=== PATIENT | female | born 2000 | race Caucasian/White ===

== ENCOUNTER 2019-03-29 15:29 | Inpatient (IN) ==
[2019-03-29] MEDS ORDERED: ONDANSETRON 4 MG/2 ML VIAL IV PRN (18:01)
[2019-03-30] MEDS: ACETAMINOPHEN 500 MG TABLET PO PRN ×2 (00:45→11:49)
[2019-03-30] MEDS ORDERED: ONDANSETRON 4 MG/2 ML VIAL IV PRN ×2 (07:25→19:16)
[2019-03-30] MEDS ORDERED: LACTATED RINGERS 250 ML IV ONE (07:25)
[2019-03-30] MEDS ORDERED: LACTATED RINGERS 500 ML IV PRN (07:25)
[2019-03-30 07:43] LABS: Basophils % 0.3 % (0.0-0.8); Eosinophils # 0.1 10*3/uL (0.0-0.87); Eosinophils % 0.6 % (0.00-10.9); Hematocrit 37.9 VOL% (35.7-47.0); Immature Granulocytes % 1.5 %; Immature Granulocytes Absolute 0.22 #; Lymphocytes # 2.9 10*3/uL (1.4-4.0); Lymphocytes % 20.2 % (21.3-54.2); Mean Corpuscular HGB Conc 31.7 GM/DL (32-36); Mean Corpuscular Volume 86.5 FL (87-102); Neutrophils % 72.4 % (38.7-73.9); Platelet Count 155 T/CUMM (130-400); Red Blood Count 4.38 MC/CUMM (3.8-5.5); White Blood Count 14.3 T/CUMM (4-12)
[2019-03-30] MEDS ORDERED: OXYTOCIN/LR 20 UNIT/1,000 ML BAG IV ONE ×2 (08:43→19:16)
[2019-03-30] MEDS ORDERED: CITRIC ACID/SODIUM CITRATE 30 ML UDCUP PO ONE (08:49)
[2019-03-30] MEDS ORDERED: hydrOXYzine HCL 25 MG/1 ML VIAL IM PRN (08:49)
[2019-03-30] MEDS ORDERED: PROMETHAZINE 25 MG/1 ML VIAL IM ONE (08:49)
[2019-03-30] MEDS ORDERED: FAMOTIDINE 20 MG/2 ML VIAL IV ONE (08:49)
[2019-03-30] MEDS ORDERED: ONDANSETRON 4 MG/2 ML VIAL IV ONE (08:49)
[2019-03-30] MEDS ORDERED: ePHEDrine 50 MG/ML AMP IV PRN (08:49)
[2019-03-30] MEDS ORDERED: diphenhydrAMINE 50 MG/1 ML VIAL IV PRN ×2 (08:49)
[2019-03-30] MEDS ORDERED: NALOXONE 0.4 MG/ML VIAL IV PRN (08:49)
[2019-03-30] MEDS ORDERED: fentaNYL 2 MCG/ROPIV 0.2% EPID 100 ML EPIDURAL SCH (09:00)
[2019-03-30] MEDS: LACTATED RINGERS 1,000 ML IV SCH ×2 (09:17→11:44)
[2019-03-30] MEDS ORDERED: OXYTOCIN/D5LR 20 UNIT/1,000 ML PREMIX IV SCH (09:30)
[2019-03-30] MEDS ORDERED: OXYTOCIN/LR 20 UNIT/1,000 ML BAG IV SCH (09:30)
[2019-03-30 12:49] LABS: Apearance,Urine CLEAR (Clear); Bilirubin,Urine Negative (Negative); Blood, Urine Negative (Negative); Glucose,Urine (UA) Negative (Negative); Ketones,Urine 20 mg/dL (Negative); Mucus,Urine Few /LPF (Occasional); Nitrite,Urine Negative (Negative); Protein,Urine 30 MG/DL; RBC,Urine 1 /HPF (0-4); Squamous Epithelial Cell,Urine Occasional /HPF (0-10); Urine Color Yellow (Yellow); Urine Specific Gravity 1.029 (1.001-1.035); Urine Urobilinogen < 2.0 EU/DL (0.2-1.0); WBC,Urine 1 /HPF (0-6)
[2019-03-30] MEDS ORDERED: ceFAZolin 3,000 MG in SYRINGE 1 EACH IV ONE (16:45)
[2019-03-30] MEDS ORDERED: OXYTOCIN/LR 30 UNIT/1,000 ML BAG IV ONE (16:48)
[2019-03-30] MEDS ORDERED: OXYTOCIN 10 UNIT/ML VIAL IM ONE (16:53)
[2019-03-30] MEDS ORDERED: LIDOCAINE MPF 2% /EPI 20 ML VIAL ONE (18:00)
[2019-03-30 19:03] LABS: Cord Arterial Blood HCO3 21.5 MMOL/L
[2019-03-30 19:05] LABS: Cord Venous Blood HCO3 21.9 MMOL/L; Cord Venous Blood PCO2 35.4 MMHG; Cord Venous Blood PO2 31.5 MMHG
[2019-03-30] MEDS ORDERED: RHO(D) IMMUNE GLOBULIN 300 MCG SYRINGE IM ONE (19:16)
[2019-03-30] MEDS ORDERED: ACETAMINOPHEN 325 MG TABLET PO PRN (19:16)
[2019-03-30] MEDS ORDERED: PROPOFOL 200 MG/20 ML VIAL IV ONE (19:28)
[2019-03-30] MEDS ORDERED: MORPHINE 10 MG/10 ML VIAL ONE (19:29)
[2019-03-30] MEDS ORDERED: MIDAZOLAM 2 MG/2 ML VIAL ONE (19:29)
[2019-03-30] MEDS ORDERED: SODIUM CHLORIDE 0.9% 100 ML IV ONE (19:30)
[2019-03-30] MEDS ORDERED: PHENYLEPHRINE 1 MG/10 ML SYRINGE IV ONE (19:30)
[2019-03-30] MEDS ORDERED: KETAMINE 500 MG/10 ML VIAL ONE (19:30)
[2019-03-30] MEDS ORDERED: ONDANSETRON 4 MG/2 ML VIAL ONE (19:30)
[2019-03-30] MEDS ORDERED: LACTATED RINGERS 1,000 ML IV SCH (19:30)
[2019-03-31] MEDS: ceFAZolin 1,000 MG in SYRINGE 1 EACH IV SCH ×2 (02:16→10:33)
[2019-03-31] MEDS: DOCUSATE SODIUM 100 MG CAPSULE PO SCH ×4 (02:35→20:44)
[2019-03-31 04:38] LABS: Basophils # 0.1 10*3/uL (0.0-0.2); Basophils % 0.3 % (0.0-0.8); Eosinophils # 0.1 10*3/uL (0.0-0.87); Eosinophils % 0.3 % (0.00-10.9); Hematocrit 35.5 VOL% (35.7-47.0); Hemoglobin 11.3 GM/DL (12.0-16.0); Immature Granulocytes Absolute 0.18 #; Lymphocytes # 2.1 10*3/uL (1.4-4.0); Lymphocytes % 11.5 % (21.3-54.2); Mean Corpuscular HGB Conc 31.8 GM/DL (32-36); Mean Corpuscular Volume 85.5 FL (87-102); Mean Platelet Volume 11.8 FL (9.6-12.0); Monocytes % 4.5 % (1.7-12.7); Neutrophils % 82.4 % (38.7-73.9); Platelet Count 137 T/CUMM (130-400); Red Blood Count 4.15 MC/CUMM (3.8-5.5); White Blood Count 18.6 T/CUMM (4-12)
[2019-03-31] MEDS: MAGNESIUM HYDROXIDE SUSP 30 ML UDCUP PO PRN (07:36)
[2019-03-31] MEDS: SIMETHICONE CHEW 80 MG TABLET PO PRN (07:36)
[2019-03-31] MEDS: MULTIVITAMIN (PRENATAL) TABLET PO SCH ×2 (07:37→12:03)
[2019-03-31 08:00] LABS: Basophils % 0.2 % (0.0-0.8); Eosinophils % 0.4 % (0.00-10.9); Hematocrit 34.5 VOL% (35.7-47.0); Hemoglobin 11.1 GM/DL (12.0-16.0); Immature Granulocytes % 1.1 %; Lymphocytes % 11.3 % (21.3-54.2); Mean Corpuscular HGB Conc 32.2 GM/DL (32-36); Mean Corpuscular Volume 85.6 FL (87-102); Mean Platelet Volume 11.7 FL (9.6-12.0); Monocytes % 4.8 % (1.7-12.7); Neutrophils % 82.2 % (38.7-73.9); Platelet Count 142 T/CUMM (130-400); Red Blood Count 4.03 MC/CUMM (3.8-5.5); White Blood Count 17.8 T/CUMM (4-12)
[2019-03-31 08:01] LABS: Eosinophils # 0.1 10*3/uL (0.0-0.87)
[2019-03-31] MEDS ORDERED: BISACODYL 10 MG SUPP RECTAL PRN (08:06)
[2019-03-31] MEDS: METOCLOPRAMIDE 10 MG TABLET PO SCH ×2 (10:33→17:00)
[2019-03-31] MEDS: IBUPROFEN 800 MG TABLET PO PRN ×2 (12:06→20:43)
[2019-03-31] MEDS ORDERED: MEPERIDINE 50 MG/1 ML VIAL IV PRN (14:24)
[2019-03-31] MEDS ORDERED: MEPERIDINE 25 MG/1 ML VIAL ONE (23:32)
[2019-04-01] MEDS: IBUPROFEN 800 MG TABLET PO PRN ×2 (02:27→23:43)
[2019-04-01] MEDS: METOCLOPRAMIDE 10 MG TABLET PO SCH ×4 (05:52→23:41)
[2019-04-01] MEDS: MULTIVITAMIN (PRENATAL) TABLET PO SCH (08:45)
[2019-04-01] MEDS: DOCUSATE SODIUM 100 MG CAPSULE PO SCH ×2 (08:45→22:06)
[2019-04-01] MEDS ORDERED: oxyCODONE/ACETAMINOPHEN 5-325 MG TABLET ONE (13:17)
[2019-04-01] MEDS: oxyCODONE/ACETAMINOPHEN 5-325 MG TABLET PO PRN ×2 (13:46→20:16)
[2019-04-01] MEDS: SERTRALINE 50 MG TABLET PO SCH (14:18)
[2019-04-01] MEDS: CLORAZEPATE 3.75 MG TABLET PO PRN ×2 (14:18→22:05)
[2019-04-01] MEDS: SIMETHICONE CHEW 80 MG TABLET PO PRN (22:05)
[2019-04-01] MEDS: MAGNESIUM HYDROXIDE SUSP 30 ML UDCUP PO PRN (22:06)
[2019-04-02] MEDS: METOCLOPRAMIDE 10 MG TABLET PO SCH (06:51)
[2019-04-02] MEDS: MULTIVITAMIN (PRENATAL) TABLET PO SCH (08:01)
[2019-04-02] MEDS: DOCUSATE SODIUM 100 MG CAPSULE PO SCH (08:01)
[2019-04-02] MEDS: SERTRALINE 50 MG TABLET PO SCH (08:01)
[2019-04-02] MEDS: IBUPROFEN 800 MG TABLET PO PRN (08:01)
[2019-04-02] MEDS: SIMETHICONE CHEW 80 MG TABLET PO PRN (08:02)
[2019-04-02] MEDS: oxyCODONE/ACETAMINOPHEN 5-325 MG TABLET PO PRN (08:03)
[2019-04-02 11:13] VITALS: BP 161/84
[2019-04-02] MEDS ORDERED: DIPH/TET/ACEL PERT BOOSTER VACCINE 0.5 ML VIAL IM ONE (13:04)
== END 2019-04-02 14:40 | disposition home or self-care (01) | DRG 540 ==
LOC: N.LDOUT 15:29 → N.LD 15:36 → N.OB 03-30 21:30
PROVIDERS: ADMIT Obstetrics & Gynecology; ATTEND Obstetrics & Gynecology
PROC: LDCSECT (ICD-10-PCS; 2019-03-30 17:00)

== ENCOUNTER 2021-12-10 09:39 | Inpatient (IN) ==
[2021-12-10] MEDS ORDERED: CITRIC ACID/SODIUM CITRATE 30 ML UDCUP PO ONE (10:03)
[2021-12-10] MEDS ORDERED: CLINDAMYCIN INJ 900 MG/50 ML PREMIX IV ONE (10:09)
[2021-12-10] MEDS: LACTATED RINGERS 1,000 ML IV SCH ×2 (10:10→23:46)
[2021-12-10] MEDS ORDERED: OXYTOCIN/LR 30 UNIT/1,000 ML BAG IV ONE (11:03)
[2021-12-10] MEDS ORDERED: OXYTOCIN 10 UNIT/ML VIAL IM ONE (11:03)
[2021-12-10] MEDS ORDERED: OXYTOCIN/LR 20 UNIT/1,000 ML BAG IV ONE ×3 (11:03→15:19)
[2021-12-10 11:29] LABS: Alanine Aminotransferase 15 U/L (13-56); Albumin 2.5 G/DL (3.4-5.0); Alkaline Phosphatase 193 U/L (45-117); Aspartate Amino Transferase 10 U/L (0-37); Bilirubin,Total < 0.39 MG/DL (0.20-1.00); Blood Urea Nitrogen 9 MG/DL (7-18); Calcium 9.4 MG/DL (8.5-10.1); Carbon Dioxide 19 MMOL/L (21-32); Estimated Glom Filtration Rate 147 ML/MIN; Glucose 101 MG/DL (74-106); Sodium 136 MMOL/L (136-145); Total Protein 6.5 G/DL (6.4-8.2)
[2021-12-10 11:36] LABS: Basophils % 0.2 % (0.0-0.8); Eosinophils # 0.1 10*3/uL (0.0-0.87); Eosinophils % 0.4 % (0.00-10.9); Hematocrit 38.8 VOL% (35.7-47.0); Hemoglobin 12.6 GM/DL (12.0-16.0); Immature Granulocytes % 1.9 %; Immature Granulocytes Absolute 0.24 #; Lymphocytes # 2.4 10*3/uL (1.4-4.0); Lymphocytes % 19.7 % (21.3-54.2); Mean Corpuscular HGB Conc 32.5 GM/DL (32-36); Mean Corpuscular Volume 85.3 FL (87-102); Mean Platelet Volume 13.5 FL (9.6-12.0); Monocytes % 3.9 % (1.7-12.7); Neutrophils % 73.9 % (38.7-73.9); Platelet Count 126 T/CUMM (130-400); Red Blood Count 4.55 MC/CUMM (3.8-5.5); Red Cell Distribution Width 14.6 % (9.3-17.3); White Blood Count 12.3 T/CUMM (4-12)
[2021-12-10] MEDS ORDERED: METHYLERGONOVINE 0.2 MG/1 ML AMP ONE (13:34)
[2021-12-10] MEDS ORDERED: CARBOPROST TROMETHAMINE 250 MCG/ML AMP IM ONE (13:34)
[2021-12-10] MEDS ORDERED: TRANEXAMIC ACID 1,000 MG/10 ML VIAL ONE ×2 (13:34→20:27)
[2021-12-10] MEDS ORDERED: miSOPROStoL 200 MCG TABLET ONE (13:34)
[2021-12-10] MEDS ORDERED: SODIUM CHLORIDE 0.9% 0 ML IV ONE (13:34)
[2021-12-10] MEDS ORDERED: FAMOTIDINE 20 MG/2 ML VIAL IV ONE ×2 (13:36→13:45)
[2021-12-10] MEDS ORDERED: BUPIVACAINE SPINAL 0.75% 2 ML AMP SPINAL ONE (13:49)
[2021-12-10] MEDS ORDERED: ONDANSETRON 4 MG/2 ML VIAL ONE (13:49)
[2021-12-10] MEDS ORDERED: MIDAZOLAM 2 MG/2 ML VIAL ONE ×2 (14:10→21:02)
[2021-12-10] MEDS ORDERED: LACTATED RINGERS 1,000 ML IV ONE (14:14)
[2021-12-10] MEDS ORDERED: PHENYLEPHRINE 1 MG/10 ML SYRINGE IV ONE (14:14)
[2021-12-10] MEDS ORDERED: METOCLOPRAMIDE 10 MG/2 ML VIAL ONE ×2 (14:36→20:44)
[2021-12-10 14:44] LABS: Cord Arterial Blood HCO3 21.6 MMOL/L
[2021-12-10 14:47] LABS: Cord Venous Blood HCO3 21.6 MMOL/L; Cord Venous Blood PCO2 44.3 MMHG; Cord Venous Blood PO2 25.1
[2021-12-10 15:01] LABS: Mucus,Urine Occasional /LPF (Occasional); RBC,Urine 4 /HPF (0-4); Squamous Epithelial Cell,Urine Occasional /HPF (0-10); Urine Appearance Clear (Clear); Urine Color Light Yellow (Yellow); Urine pH 5.5 (4.5-8.0)
[2021-12-10 15:02] LABS: Bilirubin,Urine Negative (Negative); Blood, Urine Moderate mg/dL (Negative); Glucose,Urine (UA) Negative (Negative); Ketones,Urine 40 mg/dL (Negative); Nitrite,Urine Negative (Negative); Protein,Urine Negative; Urine Specific Gravity >= 1.030 (1.001-1.035); Urine Urobilinogen < 2.0 EU/DL (<2.0)
[2021-12-10] MEDS ORDERED: RHO(D) IMMUNE GLOBULIN 300 MCG SYRINGE IM ONE (15:19)
[2021-12-10] MEDS ORDERED: ONDANSETRON 4 MG/2 ML VIAL IV PRN (15:19)
[2021-12-10] MEDS ORDERED: ACETAMINOPHEN 325 MG TABLET PO PRN (15:19)
[2021-12-10] MEDS: ACETAMINOPHEN 500 MG TABLET PO SCH (18:26)
[2021-12-10] MEDS ORDERED: SODIUM CHLORIDE 0.9% 1,000 ML IV PRN ×2 (20:16→22:29)
[2021-12-10] MEDS ORDERED: SODIUM CHLORIDE 0.9% 100 ML IV ONE (20:28)
[2021-12-10] MEDS ORDERED: TRANEXAMIC ACID 1,000 MG in SODIUM CHLORIDE 0.9% 100 ML IV ONE (20:30)
[2021-12-10] MEDS ORDERED: CALCIUM CHLORIDE 1,000 MG/10 ML SYRINGE IV ONE (20:31)
[2021-12-10 20:42] LABS: Hematocrit 35.2 VOL% (35.7-47.0); Hemoglobin 11.2 GM/DL (12.0-16.0)
[2021-12-10] MEDS ORDERED: propofoL 200 MG/20 ML VIAL IV ONE (20:42)
[2021-12-10] MEDS ORDERED: LIDOCAINE 2% 5 ML VIAL ONE (20:42)
[2021-12-10] MEDS ORDERED: KETAMINE 500 MG/10 ML VIAL ONE (20:42)
[2021-12-10] MEDS ORDERED: CALCIUM CHLORIDE 1,000 MG/10 ML VIAL IV ONE (21:00)
[2021-12-10] MEDS ORDERED: metFORMIN 500 MG TABLET PO SCH (21:00)
[2021-12-10] MEDS ORDERED: OXYTOCIN 10 UNIT/ML VIAL ONE (21:03)
[2021-12-10] MEDS ORDERED: fentaNYL 100 MCG/2 ML VIAL ONE (21:03)
[2021-12-10] MEDS ORDERED: PHENYLEPHRINE 10 MG/1 ML VIAL IV ONE (21:08)
[2021-12-10] MEDS ORDERED: ceFAZolin 1,000 MG VIAL ONE (21:33)
[2021-12-10] MEDS ORDERED: SODIUM CHLORIDE 0.9% 1,000 ML IV ONE (21:35)
[2021-12-10] MEDS ORDERED: SEVOFLURANE 1 UNIT/15 MINUTE INH ONE (22:34)
[2021-12-10] MEDS ORDERED: ROCURONIUM 50 MG/5 ML VIAL IV ONE (22:35)
[2021-12-10] MEDS ORDERED: NEOSTIGMINE 10 MG/10 ML VIAL ONE (22:35)
[2021-12-10] MEDS ORDERED: GLYCOPYRROLATE 0.4 MG/2 ML VIAL ONE (22:35)
[2021-12-10] MEDS ORDERED: HYDROmorphone 2 MG/1 ML VIAL IV PRN (23:34)
[2021-12-11] MEDS: KETOROLAC 30 MG/1 ML VIAL IV SCH ×3 (00:05→11:20)
[2021-12-11] MEDS: CLINDAMYCIN INJ 900 MG/50 ML PREMIX IV SCH ×2 (00:05→04:51)
[2021-12-11] MEDS: DOCUSATE SODIUM 100 MG CAPSULE PO SCH ×3 (00:06→21:40)
[2021-12-11] MEDS: SERTRALINE 100 MG TABLET PO SCH ×2 (00:06→20:10)
[2021-12-11] MEDS: ACETAMINOPHEN 500 MG TABLET PO SCH ×2 (00:06→06:16)
[2021-12-11] MEDS: LACTATED RINGERS 1,000 ML IV SCH ×3 (01:16→08:20)
[2021-12-11 04:54] LABS: Basophils % 0.1 % (0.0-0.8); Eosinophils % 0.1 % (0.00-10.9); Hematocrit 36.9 VOL% (35.7-47.0); Hemoglobin 11.8 GM/DL (12.0-16.0); Immature Granulocytes % 1.3 %; Immature Granulocytes Absolute 0.19 #; Lymphocytes # 2.5 10*3/uL (1.4-4.0); Lymphocytes % 17.2 % (21.3-54.2); Mean Corpuscular Volume 88.1 FL (87-102); Mean Platelet Volume 13.7 FL (9.6-12.0); Monocytes % 4.2 % (1.7-12.7); Neutrophils % 77.1 % (38.7-73.9); Platelet Count 109 T/CUMM (130-400); Red Blood Count 4.19 MC/CUMM (3.8-5.5); White Blood Count 14.6 T/CUMM (4-12)
[2021-12-11] MEDS: SIMETHICONE CHEW 80 MG TABLET PO PRN ×2 (06:23→20:10)
[2021-12-11] MEDS: FUROSEMIDE 40 MG/4 ML VIAL IV SCH ×3 (08:20→20:10)
[2021-12-11] MEDS: MULTIVITAMIN (PRENATAL) TABLET PO SCH (08:21)
[2021-12-11] MEDS: IBUPROFEN 800 MG TABLET PO PRN ×2 (08:25→18:13)
[2021-12-11 13:37] LABS: Hematocrit 35.6 VOL% (35.7-47.0); Hemoglobin 11.7 GM/DL (12.0-16.0)
[2021-12-11] MEDS: PROPRANOLOL 20 MG TABLET PO SCH (20:10)
[2021-12-11] MEDS: LEVOTHYROXINE 75 MCG TABLET PO SCH (21:00)
[2021-12-12] MEDS: IBUPROFEN 800 MG TABLET PO PRN ×3 (02:09→20:56)
[2021-12-12] MEDS: LEVOTHYROXINE 75 MCG TABLET PO SCH ×2 (05:20→06:40)
[2021-12-12] MEDS: MULTIVITAMIN (PRENATAL) TABLET PO SCH (09:20)
[2021-12-12] MEDS: DOCUSATE SODIUM 100 MG CAPSULE PO SCH ×2 (09:20→20:54)
[2021-12-12] MEDS: MAGNESIUM HYDROXIDE SUSP 30 ML UDCUP PO PRN ×2 (09:20→20:53)
[2021-12-12] MEDS: SIMETHICONE CHEW 80 MG TABLET PO PRN ×2 (09:20→20:57)
[2021-12-12] MEDS: PROPRANOLOL 20 MG TABLET PO SCH (09:21)
[2021-12-12] MEDS: SERTRALINE 100 MG TABLET PO SCH (20:53)
[2021-12-13] MEDS: LEVOTHYROXINE 75 MCG TABLET PO SCH (06:00)
[2021-12-13] MEDS: MULTIVITAMIN (PRENATAL) TABLET PO SCH (08:23)
[2021-12-13] MEDS: MAGNESIUM HYDROXIDE SUSP 30 ML UDCUP PO PRN (08:23)
[2021-12-13] MEDS: DOCUSATE SODIUM 100 MG CAPSULE PO SCH (08:24)
[2021-12-13] MEDS: IBUPROFEN 800 MG TABLET PO PRN (08:25)
[2021-12-13] MEDS: SIMETHICONE CHEW 80 MG TABLET PO PRN (08:39)
[2021-12-13 09:26] VITALS: BP 141/85
[2021-12-13] MEDS: PROPRANOLOL 20 MG TABLET PO SCH (09:30)
[2021-12-13] MEDS ORDERED: DIPH/TET/ACEL PERT BOOSTER VACCINE 0.5 ML VIAL IM ONE (10:49)
== END 2021-12-13 12:45 | disposition home or self-care (01) | DRG 540 ==
LOC: N.LD 09:39 → N.CC 23:16 → N.OB 12-11 11:46
PROVIDERS: ADMIT Obstetrics & Gynecology; ATTEND Obstetrics & Gynecology
PROC: LDCSECT (ICD-10-PCS; 2021-12-10 14:00)